=== PATIENT | female | born 1950 ===

== ENCOUNTER 2024-03-03 14:13 | Outpatient (CLI) | payer MEDICARE, SELFPAY ==
--- NOTE | ~2024-03-03 | CT_ITS ---
CT of the Abdomen and Pelvis: Indication: Gastroenteritis Technique: 2.5 mm axial scans were obtained through the abdomen and pelvis following intravenous adm inistration of 100 cc of Omnipaque 350. Dose reduction technique was used on this scan by utilizing a utomated exposure control and iterative reconstruction technique. The dose-length product (DLP) was 7 73.80 mGy-cm. Findings: Scans through the lung bases demonstrate 4 mm right lower lobe pulmonary nodule (axial nina ge 22). Additional 4 mm right lower lobe pulmonary nodule also present (axial image 18). 6 mm left lo wer lobe pulmonary nodule present (axial image 15). The liver, spleen, pancreas, gallbladder, adrenals and kidneys are within normal limits. No evidence of aortic aneurysm. No lymphadenopathy. No bowel obstruction or bowel wall thickening. There is no evidence to suggest acute appendicitis. Images through the pelvis were performed. Urinary bladder unremarkable. No adnexal mass seen. No asci rosanne. Impression: Bibasilar pulmonary nodules, as above, largest measuring 6 mm. According to Fleischner Society criter ia, for a low-risk patient, recommend follow-up CT scan in 6-12 months, then consider additional 18-[address] For a high-risk patient, follow-up CT scans at both 6-12 months and 18-24 months are rios mmended. Additionally, consider dedicated chest CT to more completely evaluate the chest. No significant abnormality in the abdomen and pelvis otherwise. Reviewed, dictated and finalized at [facility]. Impression: Bibasilar pulmonary nodules, as above, largest measuring 6 mm. According to Fle ischner Society criteria, for a low-risk patient, recommend follow-up CT scan i n 6-12 months, then consider additional 18-[address] For a high-risk patient , follow-up CT scans at both 6-12 months and 18-24 months are recommended. Fabain tionally, consider dedicated chest CT to more completely evaluate the chest. No significant abnormality in the abdomen and pelvis otherwise.
[2024-03-03 14:35] LABS: Estimated Glomerular Filt Rate > 60
== END 2024-03-03 14:14 ==
PROVIDERS: PCP Hospitalist; Visit Provider Hospitalist
DX: N13.30 Unspecified hydronephrosis (principal); R91.8 Other nonspecific abnormal finding of lung field; R11.0 Nausea; K52.9 Noninfective gastroenteritis and colitis, unspecified
CPT/HCPCS: 74177; Q9967